=== PATIENT | female | born 1995 | race Caucasian/White ===

== ENCOUNTER 2021-02-04 03:16 | Inpatient (IN) | payer BC ==
[~2021-02-04] VITALS: Ht 167.6 cm; Wt 84.1 kg
[2021-02-04] MEDS ORDERED: PRENATAL TABLE1 EAC2 PO (03:53)
[2021-02-04 03:55] LABS: BASOPHILS ABSOLUTE AUTO 0.03 K/mm3 (0.00-0.23); BASOPHILS PERCENT AUTO 0 % (0-2); EOSINOPHILS ABSOLUTE AUTO 0.08 K/mm3 (0.00-0.68); EOSINOPHILS PERCENT AUTO 1 % (0-6); Hematocrit 35.5 % (33.0-51.0); Hemoglobin 11.9 g/dL (11.5-16.0); IMMATURE GRAN ABSOLUTE AUTO 0.05 K/mm3 (0.00-0.10); IMMATURE GRAN PERCENT AUTO 1 % (0-1); LYMPHOCYTES ABSOLUTE AUTO 2.91 K/mm3 (0.84-5.20); LYMPHOCYTES PERCENT AUTO 31 % (21-46); MONOCYTES ABSOLUTE AUTO 0.68 K/mm3 (0.16-1.47); MONOCYTES PERCENT AUTO 7 % (4-13); Mean Corpuscular HGB 29.7 pg (26.0-34.0); Mean Corpuscular HGB Conc 33.5 g/dL (31.5-36.5); Mean Corpuscular Volume 89 fL (80-100); Mean Platelet Volume 11.4 fL (9.1-12.4); NEUTROPHILS PERCENT AUTO 60 % (41-73); Platelet Count 287 K/mm3 (150-400); RDW Coefficient Variation 13.5 % (11.7-14.2); RDW Standard Deviation 43.7 fL (35.1-46.3); Red Blood Cell Count 4.01 M/mm3 (3.80-5.20); White Blood Cell Count 9.35 K/mm3 (4.00-11.30)
[2021-02-04 04:39] LABS: SARS-Cov-2 (COVID-19) PCR, MMC NEGATIVE (NEGATIVE)
--- NOTE | 2021-02-04 07:00 | NUR ---
REPORT GIVEN TO HUNTER HUFFMAN.
--- NOTE | 2021-02-04 11:06 | NUR ---
REPORT TO HUNTER ROMERO
[2021-02-05 05:49] LABS: Hematocrit 30.8 % (33.0-51.0); Hemoglobin 10.1 g/dL (11.5-16.0); Mean Corpuscular HGB 29.8 pg (26.0-34.0); Mean Corpuscular HGB Conc 32.8 g/dL (31.5-36.5); Mean Corpuscular Volume 91 fL (80-100); Mean Platelet Volume 11.3 fL (9.1-12.4); Platelet Count 220 K/mm3 (150-400); RDW Coefficient Variation 13.6 % (11.7-14.2); RDW Standard Deviation 44.4 fL (35.1-46.3); Red Blood Cell Count 3.39 M/mm3 (3.80-5.20); White Blood Cell Count 10.93 K/mm3 (4.00-11.30)
[2021-02-05] MEDS ORDERED: IBUP800 PO (09:25)
[2021-02-05] MEDS ORDERED: DOCU100 PO (09:25)
--- NOTE | 2021-02-05 09:45 | NUR ---
REVIEWED D/C INSTRUCTIONS WITH PT. PT VERBALIZED UNDERSTANDING. WRITTEN COPIES OF INSTRUCTIONS GIVEN TO PT.
--- NOTE | 2021-02-05 10:57 | NUR ---
D/C'D WITH BELONGINGS. ESCORTED TO PRIVATE CAR.
== END 2021-02-05 10:50 | disposition home or self-care (01) | DRG 807 ==
LOC: OBS 03:16 → BC 03:19 → OBS 03:28 → BC 03:29
PROVIDERS: ADMIT Family Medicine
PROC: 10E0XZZ Delivery of Products of Conception, External Approach (ICD-10-PCS; principal; 2021-02-04)
DX: O62.3 Precipitate labor (principal); Z37.0 Single live birth; Z20.822 Contact with and (suspected) exposure to COVID-19; Z3A.38 38 weeks gestation of pregnancy; Z91.048 Other nonmedicinal substance allergy status
CPT/HCPCS: 36415; 85025; 85027; 86850; 86900; 86901; A9270; J1885; J2210; J2590; J7120; U0004